=== PATIENT | female | born 1955 | race Caucasian/White ===

== ENCOUNTER → 2017-12-21 | Outpatient (CLI) | payer BC ==
[2016-06-24 10:14] VITALS: BP 142/90
[~2017-12-21] MED LIST: ANUSOL HC25 MG/SUPP RC; AVAPRO300 M1 PO; FLONASE0.05 MG/AC; GLUCOSAMINE HC500 MG PO; HYDROCHLOROTH12.5 M1 PO; LEVOTHYROXIN0.025 MG PO; LEVOTHYROXINE0.2 MG PO; MOBIC15 M1 PO; PIOGLITAZONE30 MG PO; PROVENTIL0.09 MG/Ac IH; SKELAXIN 800MG800 MG PO; TEMOVATE CREAM15 GM TP; TEMOVATE0.05% TP; TYLENOL WITH CO1 TA1 PO; ULTRAM 50MG TAB50 MG PO; VITAMIN D35000 IU PO; ZITHROMAX500 M2 PO; ZOLPIDEM10 M1 PO
[2017-12-21 16:52] LABS: URINE APPEARANCE CLEAR; URINE BILIRUBIN NEGATIVE (NEGATIVE); URINE BLOOD NEGATIVE (NEGATIVE); URINE COLOR T; URINE GLUCOSE NEGATIVE (NEGATIVE); URINE KETONE NEGATIVE (NEGATIVE); URINE LEUKOCYTE ESTERASE NEGATIVE (NEGATIVE); URINE NITRATE NEGATIVE (NEGATIVE); URINE PROTEIN(semi-quant) NEGATIVE (NEGATIVE); URINE UROBILINOGEN NORMAL (NORMAL); URINE WBC 0-1 /hpf (0-3)
== END ==
LOC: LAB 15:29 → EDSTATUS 15:31
PROVIDERS: Internal Medicine
DX: R30.0 Dysuria (principal); Z88.1 Allergy status to other antibiotic agents; Z88.2 Allergy status to sulfonamides; Z88.8 Allergy status to other drugs, medicaments and biological substances

== ENCOUNTER → 2018-02-02 | Outpatient (CLI) | payer BC ==
[2016-06-24 10:14] VITALS: BP 142/90
[2018-02-02 16:28] LABS: CLUE CELLS NOT OBSERVED (Not Observd)
== END ==
LOC: LAB 16:17
PROVIDERS: Nurse Practitioner Family
DX: R30.0 Dysuria (principal); N95.2 Postmenopausal atrophic vaginitis; Z12.89 Encounter for screening for malignant neoplasm of other sites; R10.2 Pelvic and perineal pain
CPT/HCPCS: Q0111

== ENCOUNTER → 2018-07-09 | Outpatient (CLI) | payer BC ==
[~2018-07-09] VITALS: Ht 160 cm; Wt 129.5 kg
[~2018-07-09] MED LIST changes: +AMBIEN10 MG PO; +ERGOCALCIFER50000 IU PO; +ESTRACE0.5 MG PO; +PREMARIN30 GM VG; +PROVENTIL0.09 MG/A1 IH; -PROVENTIL0.09 MG/Ac IH; -ULTRAM 50MG TAB50 MG PO; +ULTRAM50 M1 PO; +ZANTAC300 MG PO; -ZOLPIDEM10 M1 PO
[2018-07-09 08:30] VITALS: BP 142/82
== END ==
LOC: AMSURD 08:21
DX: I49.3 Ventricular premature depolarization (principal)

== ENCOUNTER → 2019-03-04 | Outpatient (CLI) | payer BC ==
[~2019-03-04] VITALS: Ht 160 cm; Wt 129.5 kg
[~2019-03-04] MED LIST changes: +ASPIR LOW81 MG PO; +FLAXSEED OIL1 CAP PO; +GOOD SENSE ALLE10 MG PO; +SYSTANE 0.3-0.1 EACH OP
[2019-03-04 09:15] VITALS: BP 136/88
== END ==
LOC: AMSURD 08:52
DX: R06.02 Shortness of breath (principal)

== ENCOUNTER → 2019-08-01 | Outpatient (CLI) | payer BC ==
[2019-03-04 09:15] VITALS: BP 136/88
== END ==
LOC: RAD 12:08
DX: M19.042 Primary osteoarthritis, left hand (principal)

== ENCOUNTER → 2020-05-07 | Outpatient (CLI) | payer BC ==
[2019-03-04 09:15] VITALS: BP 136/88
== END ==
LOC: LAB 09:01
DX: J02.9 Acute pharyngitis, unspecified (principal); H57.89 Other specified disorders of eye and adnexa; R09.89 Other specified symptoms and signs involving the circulatory and respiratory systems; R11.0 Nausea; R19.7 Diarrhea, unspecified; Z20.828 Contact with and (suspected) exposure to other viral communicable diseases

== ENCOUNTER → 2021-08-16 | Outpatient (CLI) | payer MEDICARE, BC | LOC: LAB 08:13 | DX: E03.4 Atrophy of thyroid (acquired) (principal); K90.9 Intestinal malabsorption, unspecified ==

== ENCOUNTER → 2022-05-12 | Outpatient (CLI) | payer MEDICARE, BC ==
[2022-05-12 10:52] LABS: BASO # 0.05 K/mm3 (0.02-0.10); EOS # 0.16 K/mm3 (0.04-0.40); EOS % 2.2 % (1.0-5.0); HEMATOCRIT 38.1 % (37.0-47.0); HEMOGLOBIN 12.5 g/dL (12.5-16.0); MEAN CELL VOLUME 92 fl (78-100); MEAN CORPUSCULAR HEMOGLOBIN 30 pg (27-31); MEAN CORPUSCULAR HGB CONC 33 g/dL (33-37); MEAN PLATELET VOLUME 11.5 fl (7.4-10.4); MONO # 0.43 K/mm3 (0.20-0.80); NEU # 4.55 K/mm3 (1.40-6.50); PLATELET COUNT 209 K/mm3 (130-400); RED BLOOD COUNT 4.14 M/mm3 (4.10-5.30); RED CELL DISTRIBUTION WIDTH 12.6 % (11.5-14.5); WHITE BLOOD COUNT 7.3 K/mm3 (4.8-10.8)
[2022-05-12 11:20] LABS: ALBUMIN 4.2 g/dL (3.4-4.8); POTASSIUM 4.7 mmol/L (3.5-5.1)
[2022-05-12 11:21] LABS: CALCIUM 10.1 mg/dL (8.3-10.5)
[2022-05-12 11:22] LABS: TOTAL PROTEIN 7.5 g/dL (6.2-8.1)
[2022-05-12 14:24] LABS: TOTAL BILIRUBIN 0.5 mg/dL (0.2-1.2)
== END ==
LOC: LAB 09:20
PROVIDERS: Nurse Practitioner Family
DX: R81 Glycosuria (principal); N39.0 Urinary tract infection, site not specified; R09.81 Nasal congestion